=== PATIENT | male | born 1985 ===

== ENCOUNTER 2024-02-07 14:08 | Emergency (ER) | payer OTHER, SELFPAY ==
[2024-02-07 14:10] VITALS: BP 156/95
[2024-02-07 14:34] LABS: % Basophils 0.3 % (0-2); % Eosinophils 0.1 % (0-6); % Immature Granulocytes 0.4 % (0-0.5); % Lymphocytes 15.7 % (20.5-51.1); % Monocytes 8.4 % (1.7-9.3); % Neutrophils 75.1 % (42.2-75.2); Absolute Lymphocytes 1.5 10^3/uL (1.2-3.4); Absolute Monocytes 0.8 10^3/uL (0.1-0.6); Absolute Neutrophils 7.2 10^3/uL (1.4-6.5); Hematocrit 40.6 % (39.0-52.0); Hemoglobin 13.9 g/dL (13.0-18.0); Mean Corp Hgb Conc. 34.2 g/dL (33.0-37.0); Mean Corpuscular Hgb 29.6 pg (27.0-31.0); Mean Corpuscular Volume 86.4 fL (80.0-94.0); Mean Platelet Volume 10.4 fL (7.4-10.4); Nucleated Red Blood Cells % 0 % (-); Platelet Count 185 10^3/uL (130-400); Red Cell Dist. Width 11.6 % (11.5-14.5); White Blood Cell Count 9.6 10^3/uL (4.8-10.8)
[2024-02-07 14:43] LABS: ALT (SGPT) 19 U/L (0-50); AST (SGOT) 32 U/L (17-59); Albumin 4.8 g/dl (3.5-5.0); Alkaline Phosphatase 68 U/L (38-126); Blood Urea Nitrogen 13 mg/dl (9-20); Calcium 9.8 mg/dl (8.4-10.2); Carbon Dioxide 28 mmol/L (22-30); Chloride 103 mmol/L (98-107); Glucose 100 mg/dl (70-99); Lipase 36 U/L (23-300); Potassium 3.7 mmol/L (3.5-5.1); Sodium 136 mmol/L (135-145); Total Bilirubin 0.7 mg/dl (0.2-1.3); Total Protein 7.4 g/dl (6.3-8.2); eGFR > 60.00
[2024-02-07 16:16] VITALS: BP 141/90
--- NOTE | 2024-02-07 16:25 | ED.GENMED ---
History of Present Illness
General
Chief Complaint: Abdominal Symptoms
Time Seen by Provider: 02/07/24 16:24
Travel History
Have you had any contact with someone who has COVID-19?: No
Do you have any symptoms of coronavirus? Fever > 100 degrees, chills, cough, shortness of breath, sore throat, loss of taste or smell, muscle aches, or headache?: No
History of Present Illness
History of Present Illness:
HPI: Patient presents with vomiting which started overnight last night. He has no significant abdominal pain. However today, he felt generally weak as he had very poor sleep last night due to the vomiting. He was standing next to a railing on a
patio and nearly passed out striking his head. He does have a headache but is overall not concerned about the headache. Mother reports no significant change in mental status other than appearing weaker than normal and general related did not
sleeping well last night. He currently has hunger and wants to eat/drink.
EXAM:
GENERAL: Well appearing in no distress
HEENT: Moist oral mucosa
CARDIOVASCULAR: No murmurs, normal heart rate, regular rhythm, No chest wall tenderness
PULMONARY: No respiratory distress, breath sounds are clear and equal
ABDOMEN: Soft with no peritoneal signs, no tenderness
NEUROLOGIC: Excellent strength all extremities, no coordination deficits
PSYCHIATRIC: Appropriate mental status, normal insight and judgement
EXTREMITIES: Nontender, no edema, moves all extremities equally
SKIN: No rash, no lesions
TIME OF INITIAL ENCOUNTER: 4:35 PM
NUMBER AND COMPLEXITY OF PROBLEMS ADDRESSED AT THE ENCOUNTER
� Chronic conditions affecting care: Denies any significant past medical history
� Acute Exacerbation and/or Progression of Chronic Illness: This is an acute problem
� Differential Diagnosis includes: Viral syndrome, gastroenteritis, appendicitis very unlikely as he has very strong appetite currently and no focal findings on exam and white count normal
AMOUNT AND/OR COMPLEXITY OF DATA TO BE REVIEWED AND ANALYZED
� I performed an independent evaluation of and my interpretation is:
EKG:
CT:
X-rays:
Laboratory Studies: CBC unremarkable including normal white count, chemistries including LFTs and lipase are also normal.
Other:
� Review of other/old records: No old records available for review in [facility]
� Clinical information was obtained by an independent historian: I spoke to the mother at bedside
� Prescriptions/Medications Considered but not given: Offered Zofran but patient declined
� Further testing considered but not performed: Considered CT head and I offered multiple times however the patient overall feels that his symptoms or not severe enough to warrant CT imaging
RISK OF COMPLICATIONS AND/OR MORBIDITY OR MORTALITY OF PATIENT MANAGEMENT
� Social determinants of health affecting care: Lives at home
� Discussion with other providers:
� Escalation of care including admission/observation vs risk of discharge considered: Blood work is unremarkable. He has a soft nontender abdomen. He has not vomited while here. Overall he feels somewhat tired related to not
sleeping well last night due to the vomiting. He has no significant pain. I offered IV fluids but he declined saying that he wants to just try to drink fluids. He declined Zofran. I reassessed patient at 6:15 PM, he is eager to go home and
appears comfortable at time of discharge.
Phy Exam
Physical Exam
Physical Exam:
See HPI
Course
Orders/Labs/Results
Orders:
Orders
02/07/24 14:14
EKG [Electrocardiogram (*1)] Urgent
Reason for Study: Syncope
EKG- Treatment ONCE
02/07/24 14:21
Complete Blood Count/With Diff Urgent
Comprehensive Metabolic Panel Urgent
Lipase Urgent
02/07/24 17:26
Ondansetron Orally Disint [Zofran Odt (Orally Disintegrating)] 4 mg PO NOW STA
Abnormal Lab Results
02/07/24
14:21
Absolute Neuts (auto) 7.2 H 10^3/uL
(1.4-6.5)
Absolute Monos (auto) 0.8 H 10^3/uL
(0.1-0.6)
Lymphocytes % 15.7 L %
(20.5-51.1)
Glucose 100 H mg/dl
(70-99)
02/07/24 14:21
02/07/24 14:21
Vital Signs
Initial and Last Documented VS:
Initial Vital Signs
Temp Pulse Resp BP Pulse Ox
98.8 F 66 18 156/95 98
02/07/24 14:10 02/07/24 14:10 02/07/24 14:10 02/07/24 14:10 02/07/24 14:10
Last Documented Vital Signs
Temp Pulse Resp BP Pulse Ox
98.8 F 68 18 140/92 98
02/07/24 14:10 02/07/24 18:12 02/07/24 16:16 02/07/24 18:12 02/07/24 18:12
*Critical Care Note
Total Time (30-74mins, 75-104mins- exclusive of procedures): Not Applicable
ED Attending Note
-
Portions of this chart may have been created with voice recognition software.� Occasional wrong word or��sound alike� substitutions may have occurred due to the inherent limitations of voice recognition software.
Discharge Plan
Departure
Patient Disposition: Home (Routine Discharge)
Date of Disposition: 02/07/24
Time of Disposition: 18:16
Patient with high blood pressure during this ER visit?: Yes
Discharge Problem:
Nausea & vomiting
Instructions: Nausea and Vomiting, Adult (DC)
Prescriptions:
New
ondansetron HCl 4 mg tablet
4 mg PO Q6H PRN (Reason: nausea and vomiting) Qty: 10 0RF
Referrals:
NONE,* [Family Provider] -
Activity Restrictions/Additional Instructions:
If symptoms change or worsen, please return here. Basic blood work is unremarkable. I sent a prescription to your pharmacy in [place].
Interventions
Interventions:
*Risk Screen - Suicide Last Done: 02/07/24 14:10
*General Assessment Last Done: 02/07/24 14:10
*Neglect/Abuse Screening Last Done: 02/07/24 14:10
ED- Fall Risk Assessment Last Done: 02/07/24 16:17
*ED COVID-19 Vaccine History Last Done: 02/07/24 14:10
CL-Jagrvu-Ylwfoabupy Assessment Last Done: 02/07/24 16:14
Discharge Date and Time
Print Language: MACEDONIAN
[2024-02-07] MEDS: ZOFRAN ODT (ORALLY DISINTEGRATING) 4 MG PO (17:36)
[2024-02-07 18:12] VITALS: BP 140/92
[2024-02-07 18:43] VITALS: BP 140/92
== END 2024-02-07 18:44 | disposition home or self-care (01) ==
LOC: EMR 14:08
PROVIDERS: Emergency Medicine; EMERGENCY PHYSICIAN Emergency Medicine
DX: R11.2 Nausea with vomiting, unspecified (principal); R53.1 Weakness; R51.9 Headache, unspecified; R41.82 Altered mental status, unspecified; R03.0 Elevated blood-pressure reading, without diagnosis of hypertension
CPT/HCPCS: 99284; 80053; 83690; 85025; 93005